=== PATIENT | female | born 1975 | race African-American/Black ===

== ENCOUNTER 2018-03-22 14:52 | Emergency (ER) | payer SELFPAY, MEDICAID ==
[2018-03-22 16:13] LABS: URINE BLOOD (Dip) POC Trace-intact (NEGATIVE); URINE GLUCOSE (Dip) POC Negative (NEGATIVE); URINE KETONES (Dip) POC 3+ (NEGATIVE); URINE LEUKOCYTE EST (Dip) POC Negative (NEGATIVE); URINE NITRITE (Dip) POC Negative (NEGATIVE); URINE TOTAL PROTEIN POC Negative (NEGATIVE)
[2018-03-22 16:13] LABS: URINE PH (Dip) POC 6.5 (5.0-8.5)
== END 2018-03-22 18:44 | disposition home or self-care (01) ==
LOC: FTE 14:52
DX: S31.41XA Laceration without foreign body of vagina and vulva, initial encounter (principal); N76.0 Acute vaginitis; X58.XXXA Exposure to other specified factors, initial encounter; Y92.9 Unspecified place or not applicable
CPT/HCPCS: 81003; 81025; 87210; 87591; 99283